=== PATIENT | male | born 1995 | race Caucasian/White ===

== ENCOUNTER 2017-01-14 15:40 | Emergency (ER) | payer BC ==
[~2017-01-14] VITALS: Ht 200.7 cm; Wt 84.1 kg
[2017-01-14] MEDS ORDERED: DIAZEPAM 5 MG TABLET PO ONE (16:30)
[2017-01-14] MEDS ORDERED: PLEASE ENTER ALLERGIES MC SCH ×2 (16:30)
[2017-01-14] MEDS ORDERED: DIAZEPAM 5 MG TABLET ONE (16:31)
[2017-01-14 16:36] LABS: HEMATOCRIT 47.6 % (39.2-51.8); HEMOGLOBIN 16.3 g/dL (13.7-18.0)
[2017-01-14 16:47] LABS: BLOOD UREA NITROGEN 21 mg/dL (7-18)
[2017-01-14 16:54] LABS: IS PT STATUS REG ER OR PRE ER? YES
[2017-01-14 18:09] VITALS: BP 105/73
== END 2017-01-14 18:12 | disposition home or self-care (01) ==
LOC: ED 18:10
DX: F41.1 Generalized anxiety disorder (principal); R06.4 Hyperventilation; F15.129 Other stimulant abuse with intoxication, unspecified
CPT/HCPCS: 36415; 71010; 80048; 82040; 83880; 84484; 85025; 93005; 99285